=== PATIENT | female | born 1940 | race Caucasian/White ===

== ENCOUNTER 2016-07-11 10:22 | Outpatient (CLI) | payer MEDICARE, OTHER ==
[2016-04-02 11:05] VITALS: BP 129/55
== END 2016-07-11 10:23 ==
LOC: LAB 10:22
PROVIDERS: ATTEND Family Medicine
DX: E11.9 Type 2 diabetes mellitus without complications (principal)
CPT/HCPCS: 36415; 83036

== ENCOUNTER 2016-11-06 08:36 | Outpatient (CLI) | payer MEDICARE, OTHER ==
[2016-04-02 11:05] VITALS: BP 129/55
--- NOTE | 2016-11-06 20:15 | Diagnostic Imaging Report ---
REBA CHAMBERLAIN~ [facility] [address] [facility] [place], [place]. [address] ~ ~ ~ ~ Report Submission Date: November 06, 2016 4:43:37 PM CDT Patient ~ Study Name: BRENDA LOERA ~ Date: November 06, 2016 8:48:32 AM CDT ~ Modality Type: CT\SR Gender: F ~ Description: CT MAXILLOFACIAL W/O D : 40 ~ Institution: [facility] Physician: REBA CHAMBERLAIN ~ ~ ~ ~ CT of the paranasal sinuses Clinical history: ~Sinus pain in the left forehead and left cheek. Technique: ~CT of the paranasal sinuses is performed in contiguous axial slices with sagittal and coronal reconstructions. Findings: ~The paranasal sinuses are normally formed and aerated. ~Tonya bullosa is evident in the right middle turbinate. ~Nasal airway passages are patent. ~There is a small Corby cell on the left side slightly narrowing the maxillary infundibulum. ~Ostiomeatal complex is otherwise within normal limits. ~There is no air-fluid level or bony destruction. Impression: 1. ~Tonya bullosa right middle turbinate. 2. ~Corby cell on the left. 3. ~No evidence of sinusitis. ~ Electronically signed on November 06, 2016 4:43:37 PM CDT by: Bin GARCIA
== END 2016-11-06 08:37 ==
LOC: RAD 08:36
PROVIDERS: ATTEND Family Medicine
DX: E11.9 Type 2 diabetes mellitus without complications (principal); R51 Headache
CPT/HCPCS: 36415; 70486; 83036

== ENCOUNTER 2017-01-16 11:39 | Outpatient (CLI) | payer MEDICARE, OTHER ==
[2016-04-02 11:05] VITALS: BP 129/55
[2017-01-16 11:52] LABS: EOSINOPHILS % 4.6 % (0.0-6.8); MEAN CORPUSCULAR HEMOGLOBIN 31.8 pg (28.0-34.0); MEAN CORPUSCULAR VOLUME 94.7 fl (80.0-100.0); MONOCYTES % 6.7 % (0.0-11.0); NEUTROPHILS # 5.2 # k/uL (1.4-7.7)
[2017-01-16 12:43] LABS: eGFR (African) > 60; eGFR (Non-African) > 60
== END 2017-01-16 11:40 ==
LOC: LAB 11:39
PROVIDERS: ATTEND Family Medicine
DX: R42 Dizziness and giddiness (principal)
CPT/HCPCS: 36415; 80048; 85025

== ENCOUNTER 2017-03-12 09:21 | Outpatient (CLI) | payer MEDICARE, OTHER ==
[2016-04-02 11:05] VITALS: BP 129/55
[2017-03-12 20:10] LABS: TOTAL PROTEIN 6.5 g/dL (6.0-8.5)
== END 2017-03-12 09:22 ==
LOC: LAB 09:21
PROVIDERS: ATTEND Family Medicine
DX: E78.2 Mixed hyperlipidemia (principal); E11.9 Type 2 diabetes mellitus without complications
CPT/HCPCS: 36415; 80053; 80061; 83036

== ENCOUNTER 2017-09-09 09:05 | Outpatient (CLI) | payer MEDICARE, OTHER ==
[2016-04-02 11:05] VITALS: BP 129/55
== END 2017-09-09 09:06 ==
LOC: LAB 09:05
PROVIDERS: ATTEND Family Medicine
DX: E11.9 Type 2 diabetes mellitus without complications (principal)
CPT/HCPCS: 36415; 83036

== ENCOUNTER 2018-01-06 08:34 | Outpatient (CLI) | payer MEDICARE, OTHER ==
[2016-04-02 11:05] VITALS: BP 129/55
== END 2018-01-06 13:31 ==
LOC: LAB 08:34
PROVIDERS: ATTEND Family Medicine
DX: E11.9 Type 2 diabetes mellitus without complications (principal); E03.9 Hypothyroidism, unspecified
CPT/HCPCS: 36415; 80061; 83036; 84443

== ENCOUNTER 2018-04-16 09:21 | Outpatient (CLI) | payer MEDICARE, OTHER ==
[2016-04-02 11:05] VITALS: BP 129/55
[2018-04-16 10:05] LABS: MEAN CORPUSCULAR HEMOGLOBIN 31.6 pg (28.0-34.0)
[2018-04-16 10:28] LABS: eGFR (Non-African) > 60
== END 2018-04-16 09:31 ==
LOC: LAB 09:21
PROVIDERS: ATTEND Family Medicine
DX: E11.9 Type 2 diabetes mellitus without complications (principal); E55.9 Vitamin D deficiency, unspecified; R29.6 Repeated falls
CPT/HCPCS: 36415; 80053; 82306; 83036; 85027

== ENCOUNTER 2018-05-10 14:13 | Outpatient (CLI) | payer MEDICARE, OTHER ==
[2016-04-02 11:05] VITALS: BP 129/55
== END 2018-05-10 14:14 ==
LOC: LAB 14:13
PROVIDERS: ATTEND Family Medicine
DX: G62.9 Polyneuropathy, unspecified (principal)
CPT/HCPCS: 36415; 82607; 82746

== ENCOUNTER 2018-10-13 10:47 | Outpatient (CLI) | payer MEDICARE, OTHER ==
[2016-04-02 11:05] VITALS: BP 129/55
== END 2018-10-13 10:50 ==
LOC: LAB 10:47
PROVIDERS: ATTEND Family Medicine
DX: M79.604 Pain in right leg (principal); E55.9 Vitamin D deficiency, unspecified; E11.9 Type 2 diabetes mellitus without complications
CPT/HCPCS: 36415; 82306; 82550; 83036; 85027

== ENCOUNTER 2018-11-02 12:52 | Outpatient (CLI) | payer MEDICARE, OTHER ==
[2016-04-02 11:05] VITALS: BP 129/55
--- NOTE | 2018-11-02 13:28 | Diagnostic Imaging Report ---
REBA CHAMBERLAIN [facility] [address] [facility] [address] [address] Report Submission Date: November 02, 2018 1:22:40 PM CDT Patient Study Name: BRENDA LOERA Date: November 02, 2018 12:57:28 PM CDT Modality Type: DX Gender: F Description: HAND 3 VIEWS OR MORE : 40 Institution: [facility] Physician: REBA CHAMBERLAIN Examination: Plain film left hand History: Left thumb pain and swelling at base of thumb post fall and jam 1 week ago Comparison exams: None available Findings: 3 views of the left hand demonstrates osteopenia. Articular degenerative changes: most pronounced at the 1st carpal metacarpal articulation. No displaced fracture lucency. No soft tissue abnormality. Impression: Osteopenia and degenerative changes. No displaced fracture lucency. Electronically signed on November 02, 2018 1:22:40 PM CDT by: Chadwick GARCIA
== END 2018-11-02 12:53 ==
LOC: RAD 12:52
PROVIDERS: ATTEND Family Medicine
DX: M85.842 Other specified disorders of bone density and structure, left hand (principal); M24.142 Other articular cartilage disorders, left hand; M79.645 Pain in left finger(s)
CPT/HCPCS: 73130

== ENCOUNTER 2018-11-03 08:09 | Outpatient (CLI) | payer OTHER ==
[2016-04-02 11:05] VITALS: BP 129/55
== END 2018-11-03 08:11 ==
LOC: LAB 08:09
PROVIDERS: ATTEND Internal Medicine Cardiovascular Disease
DX: E78.00 Pure hypercholesterolemia, unspecified (principal); I65.23 Occlusion and stenosis of bilateral carotid arteries
CPT/HCPCS: 36415; 80053; 80061

== ENCOUNTER 2018-11-10 09:19 | Outpatient (CLI) | payer OTHER ==
[2016-04-02 11:05] VITALS: BP 129/55
--- NOTE | 2018-11-11 00:26 | Diagnostic Imaging Report ---
REBA CHAMBERLAIN [facility] [address] [facility] [address] Report Submission Date: November 10, 2018 8:24:05 PM CDT Patient Study Name: BRENDA LOERA Date: November 10, 2018 9:28:51 AM CDT Modality Type: US Gender: F Description: US DUPLEX ARTERIAL LE BILAT : 40 Institution: [facility] Physician: REBA CHAMBERLAIN Examination: Ultrasound arterial History: Decreased pulses BILATERALLY Comparison exams: None available Findings: Sonographic evaluation of the lower extremity arterial system from the groin to the distal extremities bilaterally demonstrates normal biphasic and triphasic waveforms. Peak right systolic velocity 108.1 cm/s. Peak left systolic velocity 113.3 cm/s. No abnormal plaquing/stenosis. Impression: No reduction to hemodynamic flow. No arterial stenosis/occlusive plaquing. Electronically signed on November 10, 2018 8:24:05 PM CDT by: Chadwick GARCIA
== END 2018-11-10 09:21 ==
LOC: RAD 09:19
PROVIDERS: ATTEND Family Medicine
DX: R09.89 Other specified symptoms and signs involving the circulatory and respiratory systems (principal)
CPT/HCPCS: 93925

== ENCOUNTER 2018-11-11 12:28 | Emergency (ER) | payer OTHER ==
--- NOTE | 2018-11-11 12:35 | ED Physician Documentation ---
General Adult - HISTORIAN Historian: patient - HPI Stated Complaint: fall Chief Complaint: Fall Onset: hours (12) Timing: still present Severity: moderate Further Comments: yes (per pt she fell in the bathroom and did strike her head and she is sure she had LOC. She has bilateral knee pain and neck pain. She denies any loss of movement) - ROS CONST: no problems - PAST HX Past History: hypertension, other ("heart issue" ) Immunizations: UTD Allergies/Adverse Reactions: Allergies Allergy/AdvReac Type Severity Reaction Status Date / Time atorvastatin calcium Allergy Unknown Verified 11/11/18 13:37 Home Medications: Ambulatory Orders Medication Instructions Recorded Lisinopril [Prinivil] 60 mg PO DAILY 11/11/18 - SOCIAL HX Smoking History: non-smoker Alcohol Use: none Drug Use: none - FAMILY HX Family History: No - VITAL SIGNS Vital Signs: Vital Signs Temp Pulse Resp BP Pulse Ox 129/55 04/02/16 11:03 - REVIEWED ASSESSMENTS Nursing Assessment Reviewed: Yes Vitals Reviewed: Yes Progress - Progress Progress: 1500: Discussed results and plan. She is agreeable - offer obs admission she would rather go home she does have help at home DG ED Results Lab/Radiology - Radiology Radiology Impressions: Exam: Bilateral knees. History: Status post fall. AP, lateral and sunrise views of both knees are submitted. Medial compartment narrowing, sclerosis and spurring in the right knee is noted. Mild sclerosis at the left knee both medial and lateral compartments are noted. Spurring at the femoral patellar reticulations bilaterally are noted. No soft tissue abnormality is identified. Impression: Degenerative changes noted in both knee joints is described above. No acute fracture. Electronically signed on November 11, 2018 1:44:28 PM CDT by: Florentin Torres Exam: CT brain without contrast. History: Status post fall. Axial images through the brain are submitted along with sagittal and coronal reformatted images. No previous studies are available for comparison. The brainstem and cerebellum are of normal attenuation. In the supratentorial regions, no acute hemorrhage or mass effect is identified. Lateral ventricles and surrounding sulci are prominent. No extra-axial fluid collections are identified. No bony abnormalities are identified. Impression: Atrophy. No acute intracranial process. Electronically signed on November 11, 2018 1:47:16 PM CDT by: Florentin Torres Exam: CT facial bones. History: Status post fall. Axial images through the face are submitted along with sagittal and coronal reformatted images. The examination is compared to a study dated November 06, 2016. The mandible appears to be intact. The bony orbits are intact. No retro-orbital masses or fluid collections are identified. A small middle turbinate nasal valente bullosa on the right side is identified. The paranasal sinuses are clear. No air-fluid levels are identified. Zygomatic arches are intact. No rand soft tissue abnormalities are identified. Impression: No acute fracture or dislocation. No air-fluid levels in the paranasal sinuses are noted. Electronically signed on November 11, 2018 1:51:16 PM CDT by: Florentin Torres Exam: CT cervical spine. History: Status post fall. Axial images through the cervical spine are submitted along with sagittal and coronal reformatted images. The sagittal images the vertebral body heights appear adequately maintained. Endplate sclerosis and spurring is most marked at C4-5, C5-6 and C6-7 levels. Prevertebral soft tissues are normal. The bony elements of the neural canal and the odontoid process are intact. In the axial images no acute fracture is identified. No bony canal stenosis is identified. The intervertebral foramina are patent. Paravertebral soft tissues are unremarkable. Impression: Cervical spondylosis. No acute fracture is identified. Electronically signed on November 11, 2018 1:54:21 PM CDT by: Florentin Torres General Adult Physical Exam - PHYSICAL EXAM GENERAL APPEARANCE: no distress EENT: eye inspection normal, no signs of dehydration NECK: normal inspection RESPIRATORY: no resp distress, chest non-tender, breath sounds normal CVS: reg rate & rhythm, heart sounds normal, equal pulses ABDOMEN: soft, normal bowel sounds, no distension, non-tender BACK: normal inspection, no CVA tenderness SKIN: warm/dry, other (2 cm bruise on right lateral forehead ) EXTREMITIES: non-tender, normal range of motion, no evidence of injury, no edema NEURO: oriented X3, CN's nml as tested, motor nml, sensation nml, mood/affect nml, cognition normal Discharge Clincal Impression: Fall Qualifiers: Encounter type: initial encounter Qualified Code(s): W19.XXXA - Unspecified fall, initial encounter Referrals: Yvonne Sullivan MD [Primary Care Provider] - 2 Days Comments: 1. Increase fluids 2. Change position slowly 3. Call PCP for follow up in next two days 4. Return to ER for any concerns Condition: Stable Disposition: 01 HOME, SELF-CARE Decision to Admit: NO Date of Decison to Admit: 11/11/18 Decision Time: 15:07
[2018-11-11 13:35] LABS: BASOPHILS % 0.3 % (0.0-1.5); EOSINOPHILS % 2.3 % (0.0-6.8); MEAN CORPUSCULAR HEMOGLOBIN 31.1 pg (28.0-34.0); MONOCYTES % 5.8 % (0.0-11.0); NEUTROPHILS # 7.9 # k/uL (1.4-7.7)
[2018-11-11 13:46] LABS: eGFR (Non-African) > 60
[2018-11-11 16:08] VITALS: BP 130/51
--- NOTE | 2018-11-12 08:01 | Diagnostic Imaging Report ---
ADRIENNE STOCK [facility] [address] [facility] [address] [place], [place]. [address] Report Submission Date: November 11, 2018 1:44:28 PM CDT Patient Study Name: BRENDA LOERA Date: November 11, 2018 12:57:51 PM CDT Modality Type: DX Gender: F Description: BILAT KNEES 3 VIEW : 40 Institution: [facility] Physician: ADRIENNE STOCK Exam: Bilateral knees. History: Status post fall. AP, lateral and sunrise views of both knees are submitted. Medial compartment narrowing, sclerosis and spurring in the right knee is noted. Mild sclerosis at the left knee both medial and lateral compartments are noted. Spurring at the femoral patellar reticulations bilaterally are noted. No soft tissue abnormality is identified. Impression: Degenerative changes noted in both knee joints is described above. No acute fracture. Electronically signed on November 11, 2018 1:44:28 PM CDT by: Florentin GARCIA
--- NOTE | 2018-11-12 08:05 | Diagnostic Imaging Report ---
ADRIENNE STOCK [facility] [address] [facility] [address] [place], [place]. [address] Report Submission Date: November 11, 2018 1:47:16 PM CDT Patient Study Name: BRENDA LOERA Date: November 11, 2018 1:05:23 PM CDT Modality Type: CT\SR Gender: F Description: CT BRAIN W/O CONTRAST : 40 Institution: [facility] Physician: ADRIENNE STOCK Exam: CT brain without contrast. History: Status post fall. Axial images through the brain are submitted along with sagittal and coronal reformatted images. No previous studies are available for comparison. The brainstem and cerebellum are of normal attenuation. In the supratentorial regions, no acute hemorrhage or mass effect is identified. Lateral ventricles and surrounding sulci are prominent. No extra-axial fluid collections are identified. No bony abnormalities are identified. Impression: Atrophy. No acute intracranial process. Electronically signed on November 11, 2018 1:47:16 PM CDT by: Florentin GARCIA
--- NOTE | 2018-11-12 08:07 | Diagnostic Imaging Report ---
ADRIENNE STOCK [facility] [address] [facility] [address] [place], [place]. [address] Report Submission Date: November 11, 2018 1:51:16 PM CDT Patient Study Name: BRENDA LOERA Date: November 11, 2018 1:08:03 PM CDT Modality Type: CT\SR Gender: F Description: CT MAXILLOFACIAL W/O D : 40 Institution: [facility] Physician: ADRIENNE STOCK Exam: CT facial bones. History: Status post fall. Axial images through the face are submitted along with sagittal and coronal reformatted images. The examination is compared to a study dated November 06, 2016. The mandible appears to be intact. The bony orbits are intact. No retro-orbital masses or fluid collections are identified. A small middle turbinate nasal valente bullosa on the right side is identified. The paranasal sinuses are clear. No air-fluid levels are identified. Zygomatic arches are intact. No rand soft tissue abnormalities are identified. Impression: No acute fracture or dislocation. No air-fluid levels in the paranasal sinuses are noted. Electronically signed on November 11, 2018 1:51:16 PM CDT by: Florentin GARCIA
--- NOTE | 2018-11-12 08:10 | Diagnostic Imaging Report ---
ADRIENNE STOCK [facility] [address] [facility] [address] [place], [place]. [address] Report Submission Date: November 11, 2018 1:54:21 PM CDT Patient Study Name: BRENDA LOERA Date: November 11, 2018 1:10:00 PM CDT Modality Type: CT\SR Gender: F Description: CT C SPINE W/O : 40 Institution: [facility] Physician: ADRIENNE STOCK Exam: CT cervical spine. History: Status post fall. Axial images through the cervical spine are submitted along with sagittal and coronal reformatted images. The sagittal images the vertebral body heights appear adequately maintained. Endplate sclerosis and spurring is most marked at C4-5, C5-6 and C6-7 levels. Prevertebral soft tissues are normal. The bony elements of the neural canal and the odontoid process are intact. In the axial images no acute fracture is identified. No bony canal stenosis is identified. The intervertebral foramina are patent. Paravertebral soft tissues are unremarkable. Impression: Cervical spondylosis. No acute fracture is identified. Electronically signed on November 11, 2018 1:54:21 PM CDT by: Florentin GARCIA
== END 2018-11-11 15:25 | disposition home or self-care (01) ==
LOC: ED 12:28
DX: M54.2 Cervicalgia (principal); M25.562 Pain in left knee; M25.561 Pain in right knee; S00.83XA Contusion of other part of head, initial encounter; W01.10XA Fall on same level from slipping, tripping and stumbling with subsequent striking against unspecified object, initial encounter; Y93.9 Activity, unspecified; Y92.002 Bathroom of unspecified non-institutional (private) residence as the place of occurrence of the external cause
CPT/HCPCS: 36415; 70450; 70486; 72125; 73562; 80053; 85025; 93005; 99283; 99285; L0120; S1016

== ENCOUNTER 2019-03-01 09:44 | Outpatient (CLI) | payer OTHER ==
--- NOTE | 2019-03-03 14:12 | Diagnostic Imaging Report ---
REBA CHAMBERLAIN [facility] [address] [facility] [address] Report Submission Date: Mar 01, 2019 10:19:25 AM CDT Patient Study Name: BRENDA LOERA Date: Mar 01, 2019 9:49:32 AM CDT Modality Type: DX Gender: F Description: PELVIS AP 1 OR 2 VIEWS : 40 Institution: [facility] Physician: REBA CHAMBERLAIN Pelvis AP view Indication: Right sided pelvic pain and thigh pain. Initial encounter. Findings: Frontal view of the pelvis without prior for comparison shows diffuse bony demineralization. There is no evidence of acute fracture, subluxation or dislocation. Impression: Bony demineralization No acute osseous abnormality Electronically signed on Mar 01, 2019 10:19:25 AM CDT by: Mark GARCIA
== END 2019-03-01 09:46 ==
LOC: LAB 09:44
PROVIDERS: ATTEND Family Medicine
DX: E11.9 Type 2 diabetes mellitus without complications (principal); M25.551 Pain in right hip
CPT/HCPCS: 36415; 72170; 83036

== ENCOUNTER 2019-06-06 10:06 | Outpatient (CLI) | payer OTHER ==
[2019-06-06 11:33] LABS: HDL 42 mg/dL (>40); eGFR (Non-African) > 60
== END 2019-06-06 10:11 ==
LOC: LAB 10:06
PROVIDERS: ATTEND Family Medicine
DX: E11.9 Type 2 diabetes mellitus without complications (principal)
CPT/HCPCS: 36415; 80053; 80061